=== PATIENT | female | born 1980 | race Caucasian/White ===

== ENCOUNTER → 2016-07-16 | Day surgery (SDC) | payer OTHER ==
--- NOTE | ~2016-07-16 | CATH ---
Cardiac Diagnostic + PCI Report Demographics Patient Name PATY Abdalla Gender Female Date of 1980 Age 35 year(s) Patient Number [id number] Date of Study 07/16/2016 Visit Number [id number] Room Number Corporate ID Ht 167.64 cm Wt 96.62 kg Accession Number [id number] BSA 2.05 m kg/m Referring Leatha BUSCH Primary Physician Physician Carlton Performing Leatha BUSCH Secondary Physician Physician Carlton Diagnostic Leatha BUSCH Assisting Physician Physician Carlton Interventional Leatha BUSCH Physician Business Mail Entry Clerk Physician Carlton Findings and Conclusions Diagnostic Findings and Conclusion 1. Severe single vessel 99% mLAD lesion. This lesion appeared to be a dissection Diagnostic Recommendations 1. Immediate PCI of 99% mLAD lesion Interventional Findings and Conclusion 1. With placing wire down the LAD the entire left system dissected including left main, lad, diagonal, and lcx. I ballooned the index lesion in the mid lad and then performed ivus to ensure I was in the true lumen. I then placed ADIEL stents from mid lad to ostium of left main restoring anabela 3 flow. Stents from proximal left main to mid lad were a 4.0 x 38 mm, 4.0 x 16 mm, and 3.0 x 38 mm Synergy AIDEL. 2. LVEDP was severely elevated at 36 mmHg. Interventional Recommendations 1. Transfer to [facility] for advanced heart failure treatment and CT surgery consult. She was hemodynamically stable so a balloon pump was not placed. Procedure Description The patient was brought to the diagnostic cardiac catheterization laboratory in the fasting, non-sedated state. Informed consent was obtained in the written and verbal form after the risks and benefits were explained. The patient had no further questions and agreed to proceed. The planned puncture-incision site(s) were shaved and prepped with ChloraPrep and draped in the usual sterile manner. Conscious sedation, supplemental oxygen, and pain control medications were delivered by a registered nurse under physician guidance. Surface ECG rhythm, blood pressure measurement, and pulse oximetry were monitored throughout the procedure. Arterial access. The right radial access site was infiltrated with lidocaine. The radial vessel was entered with the Seldinger technique. A 6F sheath was advanced into the vessel and used for catheter placement. Radial cocktail administered per protocol. Selective left coronary angiography. A TIG catheter was advanced into the left coronary vessel ostium under Fluoroscopic guidance. Contrast was injected by hand. Images were obtained in multiple projections. Selective right coronary angiography. A TIG catheter was advanced into the right coronary vessel ostium under fluoroscopic guidance. Contrast was injected by hand. Images were obtained in multiple projections. Angioplasty and Stent Placement: An XB3.5 guiding catheter was used to intubate the LAD vessel. A 0.14 Prowater wire was then used to cross the mLAD lesion. A 2.0 X 20 Trek balloon catheter was placed across the mLAD lesion and inflated. The balloon catheter was then removed. An [facility] thrombectomy catheter was placed across the lesion, aspirated and then removed. IVUS was performed. The LAD vessel was cannulated. An .014 BMW interventional wire was advanced across the mLAD lesson into the distal vessel. The IVUS catheter was advanced into position and imaging was performed. Vessel dimensions were measured. A 3.0 X 38 Synergy and 4.0 X 38 Drug Eluting Stents were placed in the mLAD and inflated. The lesion was post-dilated with a 5.0 X 12 NC Emerge. Post placement angiograms were performed. Left heart catheterization. A pigtail catheter was advanced across the aortic valve to the left ventricle under fluoroscopic guidance. Resting hemodynamics were obtained. The arterial sheath was stat locked and a pressurized heparin flush bag was connected. The patient was transferred to [facility] via [facility] helicopter crew. The patient left the laboratory in stable condition. Diagnostic Cath Status: Emergency Interventional Cath Status: Emergency Procedure Procedure Type Diagnostic procedure:Angiography:, Coronary Angios /[facility] PCI procedure:Drug Eluting Coronary Stent:, LAD, Thrombectomy-Mechanical , Additional Imaging:, IVUS:, Initial Vessel Indications: Acute PR and Tobacco use-current. The procedure was explained in detail to the patient. Risks, complications and alternative treatments were reviewed. Written consent was obtained. Medications Reviewed with Patient prior to Procedure. Complications: No Complication. Angiographic Findings Dominance: Right Cardiac Arteries and Lesion Findings LMCA: Normal (0% Stenosis). LAD: Abnormal. Lesion on Mid LAD: 99% stenosis reduced to 0%. Pre procedure ANABELA 0 flow was noted. Post Procedure ANABELA 0 flow was present. The guidewire cross was successful.The lesion was diagnosed as a high risk lesion.Culprit lesion. Treatment results:Dissection occurred while intervening.It was treated with a stent. Devices used - PROWATER WIRE 0.014" X 180CM. Number of passes: 1. - PROWATER WIRE 0.014" X 180CM. Number of passes: 1. - BMW GUIDEWIRE 180CM. Number of passes: 1. - CATH BLN RX TREK 2.0X20MM. Diameter: 2 mm. Length: 20 mm. 5 inflation(s) to a max pressure of: 10 clarissa. - BMW GUIDEWIRE 180CM. Number of passes: 1. - CATH STENT SYNERGY 3.0 X 38. 1 inflation(s) to a max pressure of: 12 clarissa. - CATH STENT SYNERGY 4.0 X 38. 1 inflation(s) to a max pressure of: 16 clarissa. - CATH STENT SYNERGY 4.0 X 16. 3 inflation(s) to a max pressure of: 14 clarissa. - CATH BAL RX NC EMERGE 5.0X12. 1 inflation(s) to a max pressure of: 12 clarissa. LCx: Normal (0% Stenosis). RCA: Normal (0% Stenosis). Coronary Tree Procedure Data Procedure Date Date: 07/16/2016Start: 02:08 PMEnd: 05:08 PM Entry Locations - Percutaneous access was performed through the Right Radial artery (Primary location). A 6 Fr sheath was inserted. Hemostasis was successfully obtained using a pressurized flush bag which was connected to the sheath and it was sutured in place . Procedure Medications Order and Administration + + +-------+---------+ !Time !Medication !Dosage !Route ! + + +-------+---------+ !07/16/2016 ! Radial Cocktail: 200mcg Nitro, 2.5 mg! !I.A. ! !02:10 PM !Verapamil, 5000u Heparin ! ! ! + + +-------+---------+ !07/16/2016 !Versed !1 mg !I.V. ! !02:13 PM ! ! ! ! + + +-------+---------+ !07/16/2016 !Fentanyl !50 mcg !I.V. ! !02:13 PM ! ! ! ! + + +-------+---------+ !07/16/2016 !Integrilin (ACC_7) !9 !I.V. ! !02:18 PM ! ! !bolus ! + + +-------+---------+ !07/16/2016 !Brilinta (Ticagrelor) (ACC_20) !180 mg !P.O. ! !02:19 PM ! ! ! ! + + +-------+---------+ !07/16/2016 !Integrilin (ACC_7) !16 !I.V. drip! !02:20 PM ! ! ! ! + + +-------+---------+ !07/16/2016 !Fentanyl !25 mcg !I.V. ! !02:24 PM ! ! ! ! + + +-------+---------+ !07/16/2016 !Nitroglycerin !200 mcg!I.C. ! !02:27 PM ! ! ! ! + + +-------+---------+ !07/16/2016 !Integrilin (ACC_7) !9 !I.V. ! !02:29 PM ! ! !bolus ! + + +-------+---------+ !07/16/2016 !Nitroglycerin !200 mcg!I.C. ! !02:42 PM ! ! ! ! + + +-------+---------+ !07/16/2016 !Versed !1 mg !I.V. ! !02:46 PM ! ! ! ! + + +-------+---------+ !07/16/2016 !Fentanyl !25 mcg !I.V. ! !03:14 PM ! ! ! ! + + +-------+---------+ !07/16/2016 !Fentanyl !25 mcg !I.V. ! !03:46 PM ! ! ! ! + + +-------+---------+ 07/16/2016 !Nitroglycerin !200 mcg!I.C. ! !03:48 PM ! ! ! ! + + +-------+---------+ !07/16/2016 !Fentanyl !50 mcg !I.V. ! !03:51 PM ! ! ! ! + + +-------+---------+ !07/16/2016 !Fentanyl !25 mcg !I.V. ! !03:59 PM ! ! ! ! + + +-------+---------+ !07/16/2016 !Versed !1 mg !I.V. ! !04:01 PM ! ! ! ! + + +-------+---------+ !07/16/2016 !Nitroglycerin !200 mcg!I.C. ! !04:08 PM ! ! ! ! + + +-------+---------+ 07/16/2016 !Adenosine (IC) !120 mcg!I.C. ! !04:09 PM ! ! ! ! + + +-------+---------+ !07/16/2016 !Fentanyl !50 mcg !I.V. ! !04:09 PM ! ! ! ! + + +-------+---------+ !07/16/2016 !Adenosine (IC) !120 mcg!I.C. ! !04:18 PM ! ! ! ! + + +-------+---------+ Devices Used - A6F TIG CATHETERwas used for:Coronary Angios. - AGUIDE CATHETER 6FR XB 3.5 100CMwas used for:LAD Intervention. - AASAP ASPIRATION CATHETERwas used for:LAD Intervention. - ACATH 6FR PIG 145 110CM CATHETERwas used for:LV Pressures. Contrast Material - Isovue 27449 ml - Isovue 35911 ml - Isovue 18320 ml Fluoroscopy Time: Diagnostic: 33:42 minutes. Total: 33:42 minutes. Fluoroscopy Dose: Diagnostic: 4540 mGy. Total: 4540 mGy. Estimated Blood Loss: 14 ml. Medical History Allergies - No known allergies. Risk Factors The patient risk factors include:last creatinine: 0.8 mg/dl, creatinine clearance: 148.28 ml/min and Current/Recent(w/in 1 year) tobacco use. Admission Data Admission Date: 07/16/2016 Admission Time: 02:00 PM Insurance Payors: Private health insurance. Clinical Evaluation Leading to Procedure - The patient's CAD presentation was assessed as: STEMI. - The patient's anginal syndrome during the past two weeks was assessed as: Class IV according to the [place] Cardiovascular [employer] Classification System (CCS). Anti-anginal medications were prescribed during the past two weeks. The medication is: Beta Blockers. Hemodynamics Condition: Rest O2 Consumption: Estimated: 226.68Heart Rate: 89 bpm Pressures (mmHg) +-----+ + !Site !Pressure ! +-----+ + !AO !113/88 (99) ! +-----+ + !LV !98/24 ,36 ! +-----+ + Shunts Oxygen Values O2 Capacity 157.76 O2 Consumption 226.68 Signatures
--- NOTE | 2016-07-19 13:10 | ER ---
ADMIT: 07/16/2016 RM/LOC: [facility] MR#: [id number] [address] [address] [place] [address] [place] [id number] Emergency Room Report SEX: F AGE: 35 : 1980 DATE: 07/16/2016 This 35-year-old female, brought to the Emergency Department by squad with 20 minutes worth of chest pain, described as sharp, then turning to dull, pressure radiating up to the neck and down the left arm and through to the back. She was at work when this started. It was worsened with activity. Could find no relief from it. She has no cardiac history. Has no medical history. LIMITED PHYSICAL EXAMINATION: GENERAL: Reveals a 35-year-old female, who appears in owiq-ed-eikyfrtl amount of distress. She is ashen, still complaining of the chest discomfort. LUNGS: Clear to auscultation. CARDIOVASCULAR: No murmur. Regular rate and rhythm. ABDOMEN: Soft. EXTREMITIES: Unremarkable. TELEPHONE CLERKS SUPERVISOR: No focal findings. On review of the paramedics, on EKG from the field, she had ST elevations in the anterior and lateral leads. Dr. Zhang was subsequently consulted before the patient arrived, Contract Law Specialist was notified. Repeat EKG in the Emergency Department showed resolution of the lateral elevations, however, she now had mild elevation in the inferior leads. The patient was taken to the landscape and yardwork laborer. DIAGNOSIS: UY-ieqznctme-botwztmeok infarction. Lawrence Richardson MD/ christel JOB #: [id number] CC: Carlton Zhang MD, Attending Physician Carlton Zhang MD, Family Physician
--- NOTE | 2016-07-20 15:27 | HP ---
ADMIT: 07/16/2016 RM/LOC: [facility] MR#: [id number] [address] [address] [address] [place] [address] [place] [id number] History and Physical SEX: F AGE: 35 : 1980 DATE OF SERVICE: REASON FOR ADMISSION: Anterior ST-elevation myocardial infarction. HISTORY OF PRESENT ILLNESS: Minor is a 35-year-old female with no prior cardiac history, but does have a smoking history who was working at [employer] today when she developed sudden onset of chest pressure, diaphoresis, and shortness of breath. She was very uncomfortable and her coworkers immediately called 911 and the EKG done in the field showed significant [address]-elevation. She was transported emergently to the ER. There her repeat EKG showed improvement of her ST segments and her symptoms have improved, but she still has some residual tightness. She has no prior cardiac history. PAST MEDICAL HISTORY: History of gallbladder and history of knee surgery. ALLERGIES: NO KNOWN DRUG ALLERGIES. MEDICATIONS: None. SOCIAL HISTORY: She moved here from [place] in March with her . She has 2 children. She does smoke. No significant alcohol use. No illicit drug use. FAMILY HISTORY: Family history of stroke in her father. No family history of early coronary artery disease. REVIEW OF SYSTEMS: GENERAL: Denies fatigue, fever, chills, sweats, rash, or weight loss. EYES: Denies double vision, blurred vision, cataracts, or glaucoma. ENT: Denies hearing loss or problems with nose, mouth or throat. PULMONARY: Denies cough, sputum production, asthma, emphysema or bronchitis. Denies snoring loudly, wakefulness at night, or fatigue upon awakening. GASTROINTESTINAL: Denies heartburn or difficulty swallowing. No change in bowel habits. Denies dark or bloody stools. No history of ulcers, hiatal hernia, or gallbladder or liver disease. GENITOURINARY: Denies dysuria, hematuria, nocturia, urinary tract infection, or kidney stones. Denies history of renal insufficiency or failure. MUSCULOSKELETAL: Denies history of arthritis or gout. Denies muscle or joint pains. ENDOCRINE: Denies history of thyroid dysfunction or diabetes. HEMATOLOGIC: Denies history of anemia, easy bruising, or cancer. NEUROLOGIC: Denies chronic headaches, dizziness, syncope, stroke, seizures or numbness or tingling. PSYCHIATRIC: Denies history of mental illness or feelings of depression. PHYSICAL EXAMINATION: VITAL SIGNS: Blood pressure 130/90, heart rate was in the 80s, she is afebrile, respirations 22, oxygen 96%. GENERAL: She is in mild distress. She is alert and oriented. SKIN: [place], warm and dry. ADMIT: 07/16/2016 RM/LOC: [facility] MR#: [id number] [address] [place] [id number] [place] [address] History and Physical SEX: F AGE: 35 : 1980 EYES: Sclerae clear. No xanthelasmas. ENT: Oral mucosa is pink and moist. No jugular venous distention or carotid bruits. CHEST: Respirations are even and unlabored. Lungs are clear to auscultation. HEART: Regular rate and rhythm. Normal S1, S2. No murmurs, rubs or gallops. ABDOMEN: Soft and nontender. MUSCULOSKELETAL: Gait is normal. EXTREMITIES: Peripheral pulses palpable. No clubbing, cyanosis or edema. PSYCHIATRIC: Alert and oriented. Mood and affect are appropriate. DIAGNOSTIC DATA: EKG shows anterolateral ST elevations. IMPRESSION AND PLAN: 1. Acute anterolateral ST-elevation myocardial infarction. 2. Nicotine dependence. RECOMMENDATIONS: Minor's chest pain is improved, but given her initial EKG showing severe anterolateral ST elevations, I would recommend that we proceed emergently with cardiac catheterization. I discussed the risks and benefits, including but not limited to, stroke, heart attack, , bleeding, infection, renal failure. The patient understands these risks and agrees to proceed. Carlton Zhang MD/ christel JOB #: [id number] CC: Carlton Zhang, Attending Physician Carlton Zhang, Family Physician
== END | disposition home or self-care (01) ==
LOC: ER 13:41 → SSS 14:00
DX: I21.09 ST elevation (STEMI) myocardial infarction involving other coronary artery of anterior wall (principal); I25.10 Atherosclerotic heart disease of native coronary artery without angina pectoris; F17.200 Nicotine dependence, unspecified, uncomplicated; Z98.890 Other specified postprocedural states

== ENCOUNTER → 2016-09-14 | Outpatient (CLI) | payer OTHER, MEDICAID | END | disposition home or self-care (01) | DX: I50.22 Chronic systolic (congestive) heart failure (principal) ==